=== PATIENT | male | born 1975 | race Caucasian/White ===

== ENCOUNTER 2017-01-05 03:17 | Emergency (ER) | payer OTHER ==
[~2017-01-05] VITALS: Ht 177.8 cm; Wt 96.0 kg
[2017-01-05 03:23] VITALS: BP 155/91; PULSE 68; RESP 18; TEMP 97.4; O2SAT 100
[2017-01-05] MEDS ORDERED: SERT25TA83 PO (03:39)
[2017-01-05] MEDS ORDERED: SODIUM CHLOR 0.9% 1000 ML INJ 1,000 ML IV ONE (03:39)
[2017-01-05] MEDS ORDERED: ANDR1.62 TOPICAL (03:40)
--- NOTE | 2017-01-05 03:43 | PD ---
HPI Chief Complaint: Flank/Kidney Pain Time Seen by Provider: 03:35 Travel History International Travel<30 days: No Contact w/Intl Traveler<30days: No Traveled to known affect area: No History of Present Illness HPI The patient is a 41-year-old male who states that 6 months ago they found a 1 mm stone in his kidney on imaging who complains of sudden onset, severe pain of nausea, vomiting and right flank discomfort at 1:00 this morning. He states he also had diarrhea but attributes this to some bad food he ate. The pain is an 8 /10 and is colicky and sharp. PFSH Social History Tobacco Use: Yes Allergies-Medications (Allergen,Severity, Reaction): Coded Allergies: No Known Allergies (Unverified , 01/05/17) Reported Meds & Prescriptions Reported Meds & Active Scripts Active Ibuprofen 800 Mg Tab 800 Mg PO TID Percocet (Oxycodone-Acetaminophen) 7.5-325 mg Tab 1 Tab PO Q4H PRN Phenergan (Promethazine HCl) 25 Mg Tablet 25 Mg PO Q6H PRN Flomax (Tamsulosin HCl) 0.4 Mg Cap 0.8 Mg PO HS Reported Androgel Pump Topical (Testosterone) 1.62 % Gel 81 Mg TOPICAL DAILY Sertraline (Sertraline HCl) 25 Mg Tab 25 Mg PO DAILY Review of Systems Except as stated in HPI: all other systems reviewed are Neg Physical Exam Narrative GENERAL: The patient is alert, oriented 3 in moderate to severe distress with his right flank pain. His vital signs show temperature 97.4, blood pressure 155 /91 but are otherwise normal. SKIN: Focused skin assessment warm/dry. No skin rash is seen. HEAD: Atraumatic. Normocephalic. EYES: Pupils equal and round. No scleral icterus. No injection or drainage. ENT: No nasal bleeding or discharge. Mucous membranes pink and moist. NECK: Trachea midline. No JVD. CARDIOVASCULAR: Regular rate and rhythm. No murmur appreciated. RESPIRATORY: No accessory muscle use. Clear to auscultation. Breath sounds equal bilaterally. GASTROINTESTINAL: Abdomen soft, with slight tenderness to deep palpation on the right flank and right UVJ areas, nondistended. Hepatic and splenic margins not palpable. No guarding or rebound is present MUSCULOSKELETAL: No obvious deformities. No clubbing. No cyanosis. No edema. NEUROLOGICAL: Awake and alert. No obvious cranial nerve deficits. Motor grossly within normal limits. Normal speech. PSYCHIATRIC: Appropriate mood and affect; insight and judgment normal. Data Data Last Documented VS Vital Signs Date Time Temp Pulse Resp B/P Pulse Ox O2 Delivery O2 Flow Rate FiO2 01/05/17 04:00 20 01/05/17 03:23 97.4 68 155/91 100 Orders Complete Blood Count With Diff (01/05/17 03:39) Basic Metabolic Panel (Bmp) (01/05/17 03:39) Urinalysis - C+S If Indicated (01/05/17 03:39) Ct Abd/Pel W/O Iv Contrast (01/05/17 03:39) Ecg Monitoring (01/05/17 03:39) Iv Access Insert/Monitor (01/05/17 03:39) Ondansetron Inj (Zofran Inj) (01/05/17 03:45) Sodium Chloride 0.9% Flush (Ns Flush) (01/05/17 03:45) Sodium Chlor 0.9% 1000 Ml Inj (Ns 1000 M (01/05/17 03:39) Hydromorphone Pf Inj (Dilaudid Pf Inj) (01/05/17 03:45) Ketorolac Inj (Toradol Inj) (01/05/17 03:45) Tamsulosin (Flomax) (01/05/17 05:00) Labs Laboratory Tests Test 01/05/17 03:45 White Blood Count 12.8 TH/MM3 Red Blood Count 5.50 MIL/MM3 Hemoglobin 15.8 GM/DL Hematocrit 47.5 % Mean Corpuscular Volume 86.3 FL Mean Corpuscular Hemoglobin 28.6 PG Mean Corpuscular Hemoglobin 33.2 % Concent Red Cell Distribution Width 12.4 % Platelet Count 258 TH/MM3 Mean Platelet Volume 9.3 FL Neutrophils (%) (Auto) 74.5 % Lymphocytes (%) (Auto) 16.9 % Monocytes (%) (Auto) 6.7 % Eosinophils (%) (Auto) 0.9 % Basophils (%) (Auto) 1.0 % Neutrophils # (Auto) 9.5 TH/MM3 Lymphocytes # (Auto) 2.2 TH/MM3 Monocytes # (Auto) 0.9 TH/MM3 Eosinophils # (Auto) 0.1 TH/MM3 Basophils # (Auto) 0.1 TH/MM3 CBC Comment DIFF FINAL Differential Comment Sodium Level 142 MEQ/L Potassium Level 3.8 MEQ/L Chloride Level 107 MEQ/L Carbon Dioxide Level 27.7 MEQ/L Anion Gap 7 MEQ/L Blood Urea Nitrogen 22 MG/DL Creatinine 1.50 MG/DL Estimat Glomerular Filtration 52 ML/MIN Rate Random Glucose 131 MG/DL Calcium Level 8.8 MG/DL MDM Medical Decision Making Medical Screen Exam Complete: Yes Emergency Medical Condition: Yes Medical Record Reviewed: Yes Interpretation(s) The CT abdomen pelvis shows a 3 mm ureteral stone at the distal UVJ causing mild obstructive uropathy. There is no evidence for appendicitis. Differential Diagnosis Right ureteral stone, urinary tract infection, acute appendicitisunlikely, colitis Narrative Course The patient has a right ureteral stone. It is now 0451 and the patient is in no pain. He may have passed a stone or simply is responding to his pain medications. Nevertheless, the patient will be given prescriptions for Flomax, Phenergan, Percocet and Motrin. He should follow-up with urologist. Diagnosis Primary Impression: Right ureteral calculus Additional Instructions: As we discussed, you should pass this stone without much of a problem. If you have problems, follow-up with a urologist. Take the Motrin regularly, 1 tablet 3 times daily for the next week. The Flomax is also taken regularly, 1-2 tablets daily to open up your urinary tract. The other medications are as needed medications. Med/Other Pt SpecificInfo: Prescription(s) given Scripts Ibuprofen 800 Mg [id number] Mg PO TID #44 TAB Ref 0 Prov:Amol Hassan MD 01/05/17 Oxycodone-Acetaminophen (Percocet)7.5-325 mg Tab1 Tab PO Q4H PRN (PAIN) #20 TAB Ref 0 Prov:Amol Hassan MD 01/05/17 Promethazine (Phenergan)25 Mg [id number] Mg PO Q6H PRN (NAUSEA OR VOMITING) #20 TAB Ref 0 Prov:Amol Hassan MD 01/05/17 Tamsulosin (Flomax)0.4 Mg Cap0.8 Mg PO HS #20 CAP Ref 0 Prov:Amol Hasasn MD 01/05/17 Disposition: 01 DISCHARGE HOME Condition: Stable mAol Hassan MD Jan 05, 2017 03:43
[2017-01-05] MEDS ORDERED: ONDANSETRON HCL 4 MG/2 ML VIAL IVP ONE (03:45)
[2017-01-05] MEDS ORDERED: HYDROmorphone HCL PF 1 MG/ML VIAL IVS ONE (03:45)
[2017-01-05] MEDS ORDERED: SODIUM CHLORIDE 0.9% FLUSH 10 ML FLUSH IVF PRN (03:45)
[2017-01-05] MEDS ORDERED: KETOROLAC TROMETHAMINE 60 MG/2 ML (IM) VIAL IVP ONE (03:45)
[2017-01-05 03:50] LABS: AUTOMATED NEUTROPHIL # 9.5 TH/MM3 (1.8-7.7); BASOPHIL # 0.1 TH/MM3 (0-0.2); EOSINOPHIL # 0.1 TH/MM3 (0-0.4); EOSINOPHIL % 0.9 % (0.0-4.0); HEMATOCRIT 47.5 % (39.0-51.0); HEMO FLAGS DIFF FINAL; LYMPH % 16.9 % (9.0-44.0); LYMPHOCYTE # 2.2 TH/MM3 (1.0-4.8); MEAN CELL VOLUME 86.3 FL (80.0-100.0); MEAN CORPUSCULAR HEMOGLOBIN 28.6 PG (27.0-34.0); MEAN CORPUSCULAR HGB CONC 33.2 % (32.0-36.0); MONO % 6.7 % (0.0-8.0); NEUT % 74.5 % (16.0-70.0); PLATELET COUNT 258 TH/MM3 (150-450); RED CELL DISTRIBUTION WIDTH 12.4 % (11.6-17.2); WHITE BLOOD COUNT 12.8 TH/MM3 (4.0-11.0)
[2017-01-05 03:56] LABS: POTASSIUM 3.8 MEQ/L (3.5-5.1)
[2017-01-05 03:59] LABS: BICARBONATE 27.7 MEQ/L (21.0-32.0)
--- NOTE | 2017-01-05 04:27 | RADRPT ---
EXAM DATE/TIME: 01/05/2017 03:51 [facility] COMPARISON: No previous studies available for comparison. INDICATIONS : Right side pain. ORAL CONTRAST: No oral contrast ingested. RADIATION DOSE: 20.57 CTDIvol (mGy) MEDICAL HISTORY : None SURGICAL HISTORY : None. ENCOUNTER: Initial ACUITY: 1 day PAIN SCALE: 8/10 LOCATION: Right Abdomen TECHNIQUE: Volumetric scanning of the abdomen and pelvis was performed. Using automated exposure control and ad justment of the mA and/or kV according to patient size, radiation dose was kept as low as reasonably achievable to obtain optimal diagnostic quality images. DICOM format image data is available electro nically for review and comparison. FINDINGS: LOWER LUNGS: No evidence for appendicitis. LIVER: Homogeneous density without lesion. There is no dilation of the biliary tree. No calcified gallston es. SPLEEN: Normal size without lesion. PANCREAS: Within normal limits. KIDNEYS: Normal in size and shape. There is no mass, stone, or hydronephrosis on the left. Mild obstructive u ropathy on the right secondary to distal ureteral calculus measuring 3 mm. ADRENAL GLANDS: Within normal limits. VASCULAR: There is no aortic aneurysm. BOWEL/MESENTERY: The stomach, small bowel, and colon demonstrate no acute abnormality. There is no free intraperitone al air or fluid. ABDOMINAL WALL: Within normal limits. RETROPERITONEUM: There is no lymphadenopathy. BLADDER: No wall thickening or mass. REPRODUCTIVE: Within normal limits. INGUINAL: There is no lymphadenopathy or hernia. MUSCULOSKELETAL: Within normal limits for patient age. CONCLUSION: 1. No evidence for appendicitis. 2. Distal ureteral calculus causing mild obstructive uropathy measuring 3mm. Dao Trammell MD on January 05, 2017 at 4:24 Board Certified Radiologist. This report was verified electronically.
[2017-01-05] MEDS ORDERED: PERC7.5T13 PO (04:53)
[2017-01-05] MEDS ORDERED: PROM25TA10 PO (04:53)
[2017-01-05] MEDS ORDERED: IBUP800T23 PO (04:53)
[2017-01-05] MEDS ORDERED: TAMS5CAP PO (04:53)
[2017-01-05] MEDS ORDERED: TAMSULOSIN HCL 0.4 MG CAP PO ONE (05:00)
[2017-01-05 05:22] VITALS: BP 122/74
== END 2017-01-05 05:28 | disposition home or self-care (01) ==
LOC: PHED 03:17
DX: N20.1 Calculus of ureter (principal); Z72.0 Tobacco use
CPT/HCPCS: 74176; 80048; 85025; 96361; 96374; 96375; 99285; J1170; J1885; J2405; J7030